=== PATIENT | female | born 1990 | race Two or more races ===

== ENCOUNTER 2022-01-27 13:35 | Emergency (ER) | payer MEDICAID, OTHER ==
[~2022-01-27] VITALS: Ht 162.6 cm; Wt 88.5 kg
[2022-01-27] MEDS ORDERED: SODIUM CHLORIDE 0.9% 1,000 ML IVB ONE (14:00)
[2022-01-27] MEDS ORDERED: ONDANSETRON HCL 4 MG/2 ML VIAL IV ONE (14:00)
[2022-01-27 14:51] LABS: Basophils # (auto) 0.1 10 ^3/uL (0-0.2); Basophils % (auto) 0.9 % (0.0-2.0); Eosinophils # (auto) 0.2 10 ^3/uL (0-0.8); Eosinophils % (auto) 1.6 % (0.0-7.0); Hematocrit 41.5 % (36.0-46.0); Hemoglobin 14.3 g/dL (12.2-16.2); Lymphocytes # (auto) 2.7 10 ^3/uL (0.4-5.4); Mean Corpuscular Hgb Conc. 34.6 g/dL (32.0-36.0); Mean Corpuscular Volume 83.9 fL (80.0-100.0); Monocytes # (auto) 0.7 10 ^3/uL (0-1.3); Monocytes % (auto) 7.1 % (0.0-12.0); Neutrophils # (auto) 6.2 10 ^3/uL (1.6-8.6); Neutrophils % (auto) 63.4 % (37.0-80.0); Nucleated Red Blood Cells % 0.1 %; Red Blood Cells 4.94 10^6/uL (4.0-5.20); Red Cell Distribution Width 12.5 % (11.8-14.3); White Blood Cell 9.8 10^3/uL (4.4-10.8)
[2022-01-27 15:11] LABS: Albumin 3.6 g/dL (3.4-5.0); BUN/Creatinine Ratio 17.2; Potassium 3.3 mmol/L (3.5-5.1)
[2022-01-27 15:14] LABS: Bilirubin, Total 0.5 mg/dL (0.2-1.0); Total Protein 7.9 g/dL (6.4-8.2)
[2022-01-27 16:06] LABS: Urine Bacteria NONE SEEN /hpf (None Seen); Urine Blood Negative /uL (Negative); Urine Mucus FEW (None Seen); Urine Specific Gravity 1.038 (1.001-1.035); Urine WBC 26 /hpf (0 - 5)
[2022-01-27] MEDS ORDERED: NITR-87 PO (16:19)
[2022-01-27] MEDS ORDERED: ONDA-144 PO (16:20)
[2022-01-27 17:15] VITALS: BP 124/80
== END 2022-01-27 17:20 | disposition home or self-care (01) ==
LOC: ER 13:35
DX: N39.0 Urinary tract infection, site not specified (principal); Z32.02 Encounter for pregnancy test, result negative
CPT/HCPCS: 36415; 80053; 81001; 81025; 82150; 83690; 84702; 85025

== ENCOUNTER 2023-10-09 19:02 | Emergency (ER) | payer MEDICAID, OTHER ==
[~2023-10-09] VITALS: Ht 162.6 cm; Wt 98.6 kg
[~2023-10-09 19:02] MED LIST: NITR-87 PO; ONDA-144 PO
[2023-10-09 19:19] VITALS: BP 140/90; PULSE 108; RESP 18; O2SAT 98
[2023-10-09] MEDS ORDERED: ACETAMINOPHEN 325 MG TAB PO ONE (19:30)
[2023-10-09] MEDS ORDERED: CLIN150C18 PO (19:49)
[2023-10-09] MEDS ORDERED: ALBUAER3 IN (19:49)
[2023-10-09] MEDS ORDERED: PRED20TA2 PO (19:49)
[2023-10-09] MEDS ORDERED: BENZLOZ2 MT (19:49)
[2023-10-09] MEDS ORDERED: BENZ200C64 PO (19:49)
[2023-10-09 20:01] VITALS: TEMP 100.9
[2023-10-09] MEDS: ACETAMINOPHEN 325 MG TAB PO ONE (20:01)
[2023-10-09] MEDS: LIDOCAINE VISCOUS 2% 15ML UD MT ONE (20:01)
[2023-10-09] MEDS: DexAMETHasone SOD PHOS 10MG/1ML VIAL INJ IM ONE (20:01)
[2023-10-09] MEDS: cefTRIAXone SOD 1,000 MG VL IM ONE (20:01)
== END 2023-10-09 20:35 | disposition home or self-care (01) ==
LOC: ER 19:02
DX: J03.90 Acute tonsillitis, unspecified (principal); R50.9 Fever, unspecified; Z98.890 Other specified postprocedural states; Z79.899 Other long term (current) drug therapy
CPT/HCPCS: 96372; 99284; J0696; J1100

== ENCOUNTER 2024-07-21 08:59 | Day surgery (SDC) | payer OTHER ==
[~2024-07-21] VITALS: Ht 162.6 cm; Wt 93.0 kg
[~2024-07-21 08:59] MED LIST changes: -NITR-87 PO; -ONDA-144 PO; +PANT40TA2 PO; +SEMA0.25 SC
--- NOTE | 2024-07-21 10:34 | DVHHP2 ---
GI H&P Pre-Op Assessment Date: 07/21/24 Chief complaint: Epigastric pain HPI: per clinic note Past medical history: per clinic note Past surgical history: per clinic note Family history: per clinic note Physical exam: General: NAD, AAOX3 HEENT: PERRL, no scleral icterus, normal hearing, gums without lesions or b leeding, oropharynx clear without erythema or exudate. Neck: Supple without enlargement of the thyroid, or lymphadenopathy. Chest: Normal size and shape, no tenderness, lung romero clear to auscultation and percussion, nonlabored breathing. Heart: RRR, no murmur Abdomen: non-distended, no tenderness to palpation, +BS, no hepatosplenomegaly Extremities: no edema Neurological: CN II-XII intact, sensation intact in all extremities, 5+ strength in all extremities Skin: No rashes, No jaundice Assessment: - epigastric pain Plan: - EGD - Risks (bleeding, infection, perforation, reaction to sedation medications and cardiopulmonary arrest) and benefit of the procedure were explained to patient. Patient agrees to undergo the procedure. VIOLETA HANDY MD Jul 21, 2024 10:34
[2024-07-21] MEDS ORDERED: PROPOFOL 10 MG/ML 20 ML IV ONE (10:35)
[2024-07-21] MEDS ORDERED: LIDOCAINE 2% (LOCAL ANESTH.) PF 5ml SDV ONE (10:35)
[2024-07-21 10:50] VITALS: PULSE 101; RESP 20; TEMP 98.7; O2SAT 97
--- NOTE | 2024-07-21 10:52 | DVHOP2 ---
Operative Report DATE OF OPERATION: 07/21/24 PROCEDURE: Upper Endoscopy. PREOPERATIVE INDICATION: The patient is a 33 -year-old female undergoing endoscopy for epigastric pain. POSTOPERATIVE DIAGNOSES: 1. Slight gastritis PROCEDURE PERFORMED BY: Osman Reardon SCOPE: Olympus videoendoscope. ASA CLASS: 2 PREOPERATIVE MEDICATIONS: MAC with Momo STEELE PROCEDURE IN DETAIL: After obtaining an informed consent, the patient was placed on left lateral decubitus position. The patient was then sedated with the above medications. A bite block was placed between her teeth. The endoscope was then passed through the oropharynx, into the esophagus, and through the stomach and pylorus up to the second and third part of the duodenum. The duodenum was normal appearance. There was slight gastritis. Gastric biopsies were obtained. The GE junction was normal in appearance at 33 cm. The esophagus was normal in appearance. The endoscope was then withdrawn. The patient tolerated the procedure well without difficulty. COMPLICATIONS : None SPECIMENS: Gastric biopsies DISPOSITION: D/C to home PLAN: 1. Await for biopsy result 2. Continue with Protonix OSMAN REARDON MD Jul 21, 2024 10:52
--- NOTE | 2024-07-21 10:52 | DVHDS2 ---
Physician Discharge Progress N Final Diagnosis: Gastritis Operations or Procedures: Operations or Procedures EGD with biopsy Condition on Discharge: Good Disposition: Home Discharge Instructions: Diet: Regular Activity: No Restrictions, As Tolerated Medications: Resume with previous home medications Follow Up Care: Discharge Statement: "Patient was advised to return to the ER or call 911 if any headaches, dizziness, shortness of breath, chest pain, abdominal pain, bleeding, fevers, or worsening of medical condition. Patient was counseled about treatment plan, medications, possible side effects, patientverbalized understanding. All questions were answered to the best of my ability. This discharge took greater then 30 minutes in planning, reviewing documentation, counseling the patient, and discussing with other team members." VIOLETA HANDY MD Jul 21, 2024 10:52
[2024-07-21 11:20] VITALS: BP 116/78; PULSE 63; RESP 14; O2SAT 98
== END 2024-07-21 11:25 | disposition home or self-care (01) ==
LOC: GI 08:59
PROVIDERS: ATTEND Internal Medicine Gastroenterology
DX: R10.13 Epigastric pain (principal); K29.50 Unspecified chronic gastritis without bleeding; K21.9 Gastro-esophageal reflux disease without esophagitis; E66.01 Morbid (severe) obesity due to excess calories; Z68.35 Body mass index [BMI] 35.0-35.9, adult; Z79.899 Other long term (current) drug therapy; Z90.49 Acquired absence of other specified parts of digestive tract
CPT/HCPCS: 43239; 88305; 88312; 88342; J2003; J2704; J7030

== ENCOUNTER 2025-02-24 10:10 | Emergency (ER) | payer MEDICAID, OTHER ==
[~2025-02-24] VITALS: Ht 162.6 cm; Wt 79.6 kg
--- NOTE | 2025-02-24 10:24 | ED.PDOC ---
Back pain HPI HPI Comments A 34 YEAR OLD FE/MALE PRESENTS TO THE ED WITH COMPLAINT OF NECK PAIN. PATIENT STATES SHE HAS BEEN EXPERIENCING NECK PAIN THAT RADIATES TO HER UPPER BACK THAT STARTED TODAY WHEN SHE WOKE UP. PATIENT DENIES NECK INJURY, FEVER, CHILLS, SHORTNESS OF BREATH, CHEST PAIN, ABDOMINAL PAIN, NAUSEA, VOMITING, HEADACHE, OR OTHER COMPLAINTS. NO OTHER SYMPTOMS OR MODIFYING FACTORS AT THIS TIME. PATIENT IS ALERT, ORIENTED X 4, AND HAS STEADY GAIT. Time Seen by MD: 10:18 Primary Care Provider: [facility] Reviewed Notes: Nurses Notes, Medications, Allergies Allergies: Coded Allergies: NO KNOWN ALLERGIES (Unverified , 01/27/22) Home Meds Reported Medications Semaglutide (Wegovy) 0.25 Mg/0.5 Ml Inj, 0.25 MG SC QWEEKLY, INJ 07/12/24 Pantoprazole Sodium Sesquihydr (Protonix) 40 Mg Tab, 40 MG PO DAILY, #30 TAB 07/12/24 Information Source: Patient Mode of Arrival: Ambulatory Timing: Days Duration: Since onset, Other Location of Back pain: (B) Cervical Severity: Moderate Prehospital treatment: None Quality: Aching Onset: Spontaneous History of: None Modifying Factors: Movement Associated signs and symptoms: None Past Medical History PAST MEDICAL HISTORY: Denies Surgical History: Cholecystectomy FORENSIC DNA ANALYST History: No Pertinent FORENSIC DNA ANALYST History Family History Family History: Reviewed,noncontributory to illness Social History Smoker: Non-Smoker Alcohol: Occasionally Drugs: Denies Drug Use Lives In: Home Constitutional: denies: chills, diaphoresis, fatigue, fever, malaise, sweats, weakness, others EENTM: denies: blurred vision, double vision, ear bleeding, ear discharge, ear drainage, ear pain, ear ringing, eye pain, eye redness, hearing loss, mouth pain, mouth swelling, nasal discharge, nose bleeding, nose congestion, nose pain, photophobia, tearing, throat pain, throat swelling, voice changes, others Respiratory: denies: cough, hemoptysis, orthopnea, SOB at rest, shortness of breath, SOB with excertion, stridor, wheezing, others Cardiovascular: denies: chest pain, dizzy spells, diaphoresis, Dyspnea on exertion, edema, irregular heart beat, left arm pain, lightheadedness, pal pitations, PND, syncope, others Gastrointestinal: denies: abdomen distended, abdominal pain, blood streaked bowels, constipated, diarrhea, dysphagia, difficulty swallowing, hematemesis, melena, nausea, poor appetite, poor fluid intake, rectal bleeding, rectal pain, vomiting, others Genitourinary: denies: abnormal vagina bleeding, burning, dyspareunia, dysuria, flank pain, frequency, hematuria, incontinence, pain, , vagina discharge, urgency, others Neurological: denies: dizziness, fainting, headache, left sided numbness, left sided weakness, numbness, paresthesia, pre-existing deficit, right sided numbness, right sided weakness, seizure, speech problems, tingling, tremors, weakness, others Musculoskeletal: reports: back pain, muscle pain, neck pain; denies: gout, joint pain, joint swelling, muscle stiffness, others Integumetry: denies: bruises, change in color, change in hair/nails, dryness, laceration, lesions, lumps, rash, wounds, others Allergic/Immunocompromised: denies: Difficulty Healing, Frequent Infections, Hives, Itching, others Hematologic/Lymphatic: denies: anemia, blood clots, easy bleeding, easy bruising, swollen glands, others Endocrine: denies: excessive hunger, excessive sweating, excessive thirst, excessive urination, flushing, intolerance to cold, intolerance to heat, unexplained weight gain, unexplained weight loss, others Psychiatric: denies: anxiety, bipolar disorder, depression, hopeless, panic disorder, schizophrenia, sleepless, suicidal, others All Other Systems: Reviewed and Negative Physical Exam General Appearance: No Apparent Distress, Obese, Other (ANXIOUS) HEENT: Normal ENT Inspection, PERRL/EOMI, Pharynx Normal, TMs Normal Neck: Full Range of Motion, Normal Inspection, Supple, Tender Lateral (MUSCLE SPASM ON POSTERIOR NECK, NO BONY TENDERNESS, SWELLING AND DEFORMITY. ) Respiratory: Chest Non-Tender, Lungs Clear, No Accessory Muscle Use, No Respiratory Distress, Normal Breath Sounds Cardiovascular: No Edema, No JVD, No Murmur, No Gallop, Normal Peripheral Pulses, Regular Rate/Rhythm Breast Exam: Deferred Gastrointestinal: No Organomegaly, Non Tender, No Pulsatile Mass, Normal Bowel Sounds, Soft Genitalia: Deferred Pelvic: Deferred Rectal: Deferred Extremities: No calf tenderness, Normal capillary refill, Normal inspection, Normal range of motion, Non-tender, No pedal edema Musculoskeletal : Apperance: Normal Neurologic: Alert, ecologist II-XII nml as Tested, No Motor Deficits, Normal Affect, Normal Mood, No Sensory Deficits Cerebellar Function: Normal Reflexes: Normal Skin: Dry, Normal Color, Warm Peripheral Pulses: 2+ carotid (R), 2+ carotid (L) Lymphatic: No Adenopathy Was a procedure done? Was a procedure done?: No EKG EKG : Pulse Rate (adult): 88 [place]: Normal Cardiac Rhythm: NSR Block: None Hypertrophy: None ST: Normal Back Pain Differential Dx Differential Diagnosis: Musculoskeletal Pain, Strain Other Differential Diagnosis MUSCLE SPASM X-Ray, Labs, Meds, VS Vital Signs Date Time Temp Pulse Resp B/P (MAP) Pulse Ox O2 Delivery O2 Flow Rate FiO2 02/24/25 11:19 98.4 70 15 131/92 (105) 99 98.4 02/24/25 11:19 70 15 99 Room Air 02/24/25 11:09 88 02/24/25 10:30 98.2 96 16 142/94 (110) 99 98.2 02/24/25 10:25 88 Current Medications Medications (Trade) Dose Ordered Sig/Bob Route Start Time Stop Time Status Last Admin Ketorolac Tromethamine (Toradol Injection) 60 mg ONCE ONCE IM 02/24/25 11:15 02/24/25 11:16 DC 02/24/25 11:25 INDICATION: NECK PAIN TO UPPER BACK TECHNIQUE: 3 views of the cervical spine were obtained. COMPARISON: None FINDINGS: The cervical spine is visualized from C1-C7. There is loss of the normal cervical lordosis which can be positional. No fractures or subluxations are identified. Alignment appears unremarkable. Prevertebral soft tissues are within normal limits. IMPRESSION: No acute fracture or subluxation ATED BY: DEREJE HAIDER MD DICTATED DATE/TIME: 02/24/25 111 SIGNED BY: DEREJE HAIDER MD SIGNED DATE/TIME: 02/24/25 111 CC: X-Ray, Labs, Meds, VS Comment EXTERNAL MEDICAL RECORDS REVIEWED: [NONE] INDEPENDENT HISTORIANS: [NONE] SOCIAL DETERMINANTS OF HEALTH: [NONE] LABS ORDERED: NONE REVIEWED AND INTERPRETED RESULTS: NONE IMAGING ORDERED: XR C-SPINE TREATMENTS ORDERED: TORADOL 60MG IM PROCEDURES PERFORMED: NONE CRITICAL CARE TIME: NONE I HAVE DISCUSSED THE PATIENT WITH THE ATTENDING PHYSICIAN DR. SILVEIRA AND HE AGREES WITH THE PATIENT'S PLAN OF CARE AND DISPOSITION. BASED ON HISTORY OF PRESENT ILLNESS, AND PHYSICAL EXAM, PATIENT WILL BE DISCHARGED HOME. DISCUSSED PLAN FOR DISCHARGE HOME WITH RX [MOTRIN 800MG]. MEDICATION WARNINGS GIVEN. SHARED DECISION MAKING: DISCUSSED WITH PATIENT THAT THEIR WORKUP WAS NORMAL. PATIENT INSTRUCTED TO FOLLOW UP WITH PRIMARY CARE PROVIDER IN 1-2 DAYS FOR RE- EVALUATION OF SYMPTOMS. PATIENT VERBALIZES UNDERSTANDING TO RETURN TO ED FOR NEW OR WORSENING SYMPTOMS OR IF FOLLOW UP WITH PCP CANNOT BE OBTAINED. PATIENT FEELS COMFORTABLE GOING HOME AT THIS TIME. ALL QUESTIONS ADDRESSED AT TIME OF DISCHARGE. Images Reviewed?: Images reviewed and evaluated by me Time of 1ST Reevaluation: 12:09 Reevaluation 1ST: Improved Patient Education/Counseling: Diagnosis, Treatment, Need For Follow Up Family Education/Counseling: Diagnosis, Treatment, Need For Follow Up SEPSIS Sepsis Screen Physician Orders Cervical Spine 3v (02/24/25 10:37) Vital Signs Date Time Temp Pulse Resp B/P (MAP) Pulse Ox O2 Delivery O2 Flow Rate FiO2 02/24/25 11:19 98.4 70 15 131/92 (105) 99 98.4 02/24/25 11:19 70 15 99 Room Air 02/24/25 11:09 88 02/24/25 10:30 98.2 96 16 142/94 (110) 99 98.2 02/24/25 10:25 88 Medications Medications Dose Ordered Sig/Bob Route Start Time Stop Time Status Last Admin Dose Admin Ketorolac Tromethamine 60 mg ONCE ONCE IM 02/24/25 11:15 02/24/25 11:16 DC 02/24/25 11:25 Departure 1 Departure Time of Disposition: 12:10 Impression: Primary Impression: Cervical muscle strain Qualified Codes: S16.1XXA - Strain of muscle, fascia and tendon at neck level, initial encounter Disposition: 01 HOME / SELF CARE / HOMELESS Condition: Stable Additional Instructions: FOLLOW-UP WITH PCP IN 1 TO 2 DAYS. TAKE MEDICATIONS PRESCRIBED. RETURN TO ED FOR ANY NEW OR WORSENING SYMPTOMS. e-Prescriptions Methocarbamol (Methocarbamol) 750 Mg Tab 750 MG PO BID, #20 TAB Prov: KEAGAN EDGAR 02/24/25 Ibuprofen (Ibuprofen) 800 Mg Tab 1 TAB PO TID, #30 TAB Prov: KEAGAN EDGAR 02/24/25 Discharged With: Self Critical Care Note Critical Care Time?: No Stability Stability form required: No I personally scribed for KEAGAN EDGAR ([email or web address]) on 02/24/25 at 10:24. Electronically submitted by Eugene Keller ([email or web address]). I personally scribed for KEAGAN EDGAR ([email or web address]) on 02/24/25 at 11:09. Electronically submitted by Eugene Keller ([email or web address]). I personally scribed for KEAGAN EDGAR ([email or web address]) on 02/24/25 at 11:24. Electronically submitted by Eugene Keller ([employer]). KEAGAN EDGAR Feb 24, 2025 10:24
--- NOTE | 2025-02-24 10:29 | ECG ---
[facility] Test Date: 2025-02-24 Test Time: 10:25:24 Pat Name: TABBY OLEARY Department: ER Room: Gender: F Finisher [employer]: KAYKAY : 1990 Requested By: KEAGAN EDGAR Order Number: [id number] Reading MD: Jean-Pierre Mejia Measurements Intervals [place] Rate: 88 P: 41 DE: 160 QRS: 37 QRSD: 87 T: 25 QT: 356 QTc: 431 Interpretive Statements Sinus rhythm Borderline T abnormalities, anterior leads Electronically Signed On 02-27-2025 18:39:19 PDT by Jean-Pierre Mejia Please click the below link to view image of tracing.
--- NOTE | 2025-02-24 11:12 | DVH ---
INDICATION: NECK PAIN TO UPPER BACK TECHNIQUE: 3 views of the cervical spine were obtained. COMPARISON: None FINDINGS: The cervical spine is visualized from C1-C7. There is loss of the normal cervical lordosis which can be positional. No fractures or subluxations are identified. Alignment appears unremarkable. Prevertebral soft tissues are within normal limits. IMPRESSION: No acute fracture or subluxation
[2025-02-24 11:19] VITALS: BP 131/92; PULSE 70; RESP 15; TEMP 98.4; O2SAT 99
[2025-02-24] MEDS: KETOROLAC TROMETH 60MG/2ML VIAL IM ONE (11:25)
[2025-02-24] MEDS ORDERED: METH-1182 PO (12:08)
[2025-02-24] MEDS ORDERED: IBUP-1456 PO (12:08)
== END 2025-02-24 12:24 | disposition home or self-care (01) ==
LOC: ER 10:10
DX: S16.1XXA Strain of muscle, fascia and tendon at neck level, initial encounter (principal); F10.90 Alcohol use, unspecified, uncomplicated; Z90.49 Acquired absence of other specified parts of digestive tract; Z79.899 Other long term (current) drug therapy; X58.XXXA Exposure to other specified factors, initial encounter; Y93.89 Activity, other specified; Y92.89 Other specified places as the place of occurrence of the external cause; Y99.8 Other external cause status; Y90.9 Presence of alcohol in blood, level not specified
CPT/HCPCS: 72040; 93005; 96372; 99283; J1885

== ENCOUNTER 2025-04-09 09:01 | Emergency (ER) | payer OTHER ==
[~2025-04-09] VITALS: Ht 162.6 cm; Wt 80.0 kg
[~2025-04-09 09:01] MED LIST changes: +IBUP-1456 PO; +METH-1182 PO
--- NOTE | 2025-04-09 09:21 | ED.PDOC ---
History of Present Illness HPI Comments 34-year-old female presents to the ER with prior surgical history of cholecystectomy in the chief complaint of flu-like symptoms. Patient reports on having N/V, fever, headache, sore throat and body aches which all started yesterday. She states she is very nauseous and has a headache which is most bothersome. Denies chills, /D, SOB, CP. No other associated symptoms, modifiers, recent injuries or sick contacts present at this time. Chief Complaint: Flu like Time Seen by MD: 09:20 Primary Care Provider: Angelito Gay Notes: Nurses Notes, Medications, Allergies Allergies: Coded Allergies: NO KNOWN ALLERGIES (Unverified , 01/27/22) Home Meds Active Scripts Methocarbamol (Methocarbamol) 750 Mg Tab, 750 MG PO BID, #20 TAB Prov:KEAGAN EDGAR 02/24/25 Ibuprofen (Ibuprofen) 800 Mg Tab, 1 TAB PO TID, #30 TAB Prov:KEAGAN EDGAR 02/24/25 Reported Medications Semaglutide (Wegovy) 0.25 Mg/0.5 Ml Inj, 0.25 MG SC QWEEKLY, INJ 07/12/24 Pantoprazole Sodium Sesquihydr (Protonix) 40 Mg Tab, 40 MG PO DAILY, #30 TAB 07/12/24 Information Source: Patient Mode of Arrival: Ambulatory Severity: Moderate Timing: Hours Duration: Since onset, Hours Prehospital treatment: None Past Medical History PAST MEDICAL HISTORY: Denies Surgical History: Cholecystectomy WIRE SPRING RELAY ADJUSTER History: No Pertinent WIRE SPRING RELAY ADJUSTER History Family History Family History: Reviewed,noncontributory to illness, Unknown Social History Smoker: Non-Smoker Alcohol: Denies ETOH Use Drugs: Denies Drug Use Lives In: Home Constitutional: reports: fever, others (Body aches, sore throat); denies: chills, diaphoresis, fatigue, malaise, sweats, weakness EENTM: denies: blurred vision, double vision, ear bleeding, ear discharge, ear drainage, ear pain, ear ringing, eye pain, eye redness, hearing loss, mouth pain, mouth swelling, nasal discharge, nose bleeding, nose congestion, nose pain, photophobia, tearing, throat pain, throat swelling, voice changes, others Respiratory: denies: cough, hemoptysis, orthopnea, SOB at rest, shortness of breath, SOB with excertion, stridor, wheezing, others Cardiovascular: denies: chest pain, dizzy spells, diaphoresis, Dyspnea on exertion, edema, irregular heart beat, left arm pain, lightheadedness, pa lpitations, PND, syncope, others Gastrointestinal: reports: nausea, vomiting; denies: abdomen distended, abdominal pain, blood streaked bowels, constipated, diarrhea, dysphagia, difficulty swallowing, hematemesis, melena, poor appetite, poor fluid intake, rectal bleeding, rectal pain, others Genitourinary: denies: abnormal vagina bleeding, burning, dyspareunia, dysuria, flank pain, frequency, hematuria, incontinence, pain, , vagina discharge, urgency, others Neurological: reports: headache; denies: dizziness, fainting, left sided numbness, left sided weakness, numbness, paresthesia, pre-existing deficit, right sided numbness, right sided weakness, seizure, speech problems, tingling, tremors, weakness, others Musculoskeletal: reports: muscle pain; denies: back pain, gout, joint pain, joint swelling, muscle stiffness, neck pain, others Integumetry: denies: bruises, change in color, change in hair/nails, dryness, laceration, lesions, lumps, rash, wounds, others Allergic/Immunocompromised: denies: Difficulty Healing, Frequent Infections, Hives, Itching, others Hematologic/Lymphatic: denies: anemia, blood clots, easy bleeding, easy bruising, swollen glands, others Endocrine: denies: excessive hunger, excessive sweating, excessive thirst, excessive urination, flushing, intolerance to cold, intolerance to heat, unexplained weight gain, unexplained weight loss, others Psychiatric: denies: anxiety, bipolar disorder, depression, hopeless, panic disorder, schizophrenia, sleepless, suicidal, others All Other Systems: Reviewed and Negative Physical Exam General Appearance: No Apparent Distress, Normal HEENT: Normal ENT Inspection, Pharyngeal Erythema, TMs Normal Neck: Full Range of Motion, Non-Tender, Normal, Normal Inspection Respiratory: Chest Non-Tender, Lungs Clear, No Accessory Muscle Use, No Respiratory Distress, Normal Breath Sounds Cardiovascular: No Edema, No JVD, No Murmur, No Gallop, Normal Peripheral Pulses, Regular Rate/Rhythm Breast Exam: Deferred Gastrointestinal: No Organomegaly, Non Tender, No Pulsatile Mass, Normal Bowel Sounds, Soft Genitalia: Deferred Pelvic: Deferred Rectal: Deferred Extremities: No calf tenderness, Normal capillary refill, Normal inspection, Normal range of motion, Non-tender, No pedal edema Musculoskeletal : Apperance: Normal Neurologic: Alert, supervisor insulation II-XII nml as Tested, No Motor Deficits, Normal Affect, Normal Mood, No Sensory Deficits Cerebellar Function: NOT DONE Reflexes: Normal Skin: Dry, Normal Color, Warm Lymphatic: No Adenopathy Was a procedure done? Was a procedure done?: No Differential Dx Considerations may include: COVID versus influenza versus upper respiratory infection X-Ray, Labs, Meds, VS Vital Signs Date Time Temp Pulse Resp B/P (MAP) Pulse Ox O2 Delivery O2 Flow Rate FiO2 04/09/25 09:52 98.2 106 18 124/82 (96) 100 98.2 04/09/25 09:52 106 18 100 Room Air 04/09/25 09:02 98.6 118 18 126/84 100 98.6 Lab Test 04/09/25 09:38 Range/Units Influenza Type A Antigen Negative Negative Influenza Type B Antigen Negative Negative SARS-CoV-2 Antigen (Rapid) Negative NEGATIVE Current Medications Medications (Trade) Dose Ordered Sig/Bob Route Start Time Stop Time Status Last Admin Ondansetron HCl (Zofran Po) 4 mg ONCE ONCE PO 04/09/25 09:45 04/09/25 09:46 DC 04/09/25 09:45 X-Ray, Labs, Meds, VS Comment Patient seen and examined by me. Patient is concerned that she might have flu. Patient will be tested for flu and COVID while here in the ER and will also be given Zofran to help with her nausea.. Patient's COVID and flu tests were all negative. Patient does say that her throat is very bothersome in his very painful. I will give her some antibiotics. And some Motrin. I have instructed her to drink lots of liquids get rehydrated as much as possible.. Time of 1ST Reevaluation: 09:50 Reevaluation 1ST: Unchanged Time of 2ND Reevaluation: 11:07 Patient Education/Counseling: Diagnosis, Treatment, Prognosis Family Education/Counseling: No Family Present SEPSIS Sepsis Screen Date sepsis recognized/suspect: Apr 09, 2025 Time Sepsis recognized/suspect: 0904 Recent Procedure: No Respiratory Rate >20: No Heart Rate >90: Yes Temp<36 C (96.8 F) or >38.3 C: No SBP <90 or MAP <65 mmHG: No New Acute Mental Status Change: No Is the patient on CPAP, BIPAP,: No Vital Signs Date Time Temp Pulse Resp B/P (MAP) Pulse Ox O2 Delivery O2 Flow Rate FiO2 04/09/25 09:52 98.2 106 18 124/82 (96) 100 98.2 04/09/25 09:52 106 18 100 Room Air 04/09/25 09:02 98.6 118 18 126/84 100 98.6 Medications Medications Dose Ordered Sig/Bob Route Start Time Stop Time Status Last Admin Dose Admin Ondansetron HCl 4 mg ONCE ONCE PO 04/09/25 09:45 04/09/25 09:46 DC 04/09/25 09:45 Departure 1 Departure Time of Disposition: 11:07 Impression: Primary Impression: Pharyngitis Disposition: HOME / SELF CARE / HOMELESS Condition: Good Additional Instructions: Your COVID and flu test were normal Please finish antibiotics as directed Drink lots of liquids Use the Motrin as needed for pain e-Prescriptions Ibuprofen Micronized (Ibuprofen) 600 Mg Tab 600 MG PO Q6HPRN PRN for 5 Days, #20 TAB Prov: BROWN WAGNERP 04/09/25 Amoxicillin Trihydrate (Amoxicillin) 500 Mg Cap 1 CAP PO TID for 7 Days, #30 CAP Prov: BROWN WAGNERP 04/09/25 Discharged With: Self Critical Care Note Critical Care Time?: No Stability Stability form required: No I personally scribed for ER ([email or web address]) on 04/09/25 at 09:21. Electronically submitted by José Everett ([email or web address]). ER Apr 09, 2025 09:21 BROWN WAGNER TILE AND MARBLE SETTER Apr 09, 2025 09:40
[2025-04-09] MEDS: ONDANSETRON ODT 4 MG TAB PO ONE (09:45)
[2025-04-09 09:52] VITALS: BP 124/82; PULSE 106; RESP 18; TEMP 98.2; O2SAT 100
[2025-04-09 11:01] LABS: COVID19 ANTIGEN SOFIA FIA NEGATIVE (NEGATIVE)
[2025-04-09] MEDS ORDERED: IBUP1TAB5 PO (11:08)
[2025-04-09] MEDS ORDERED: AMOX500C2 PO (11:08)
== END 2025-04-09 11:21 | disposition home or self-care (01) ==
LOC: ER 09:01
DX: J02.9 Acute pharyngitis, unspecified (principal); Z79.899 Other long term (current) drug therapy; Z90.49 Acquired absence of other specified parts of digestive tract; Z20.822 Contact with and (suspected) exposure to COVID-19
CPT/HCPCS: 36415; 87426; 87804; 99283; Q0162